=== PATIENT | female | born 2000 | race Caucasian/White ===

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

== ENCOUNTER 2023-11-25 19:59 | Emergency (ER) | payer OTHER ==
[2023-11-25 20:04] VITALS: BP 122/72; PULSE 69; RESP 18; TEMP 98.2; BMI 18.7
== END 2023-11-25 22:35 | disposition home or self-care (01) ==
LOC: JERFT 19:59
PROC: 2W3CX1Z Immobilization of Right Lower Arm using Splint (ICD-10-PCS; principal; 2023-11-25)
DX: S52.571A Other intraarticular fracture of lower end of right radius, initial encounter for closed fracture (principal); V43.52XA Car driver injured in collision with other type car in traffic accident, initial encounter
CPT/HCPCS: 73110-TC-RT-FY; 73130-TC-RT-FY; 99283-25